=== PATIENT | female | born 1985 | race Caucasian/White ===

== ENCOUNTER 2017-12-16 14:19 | Emergency (ER) | payer OTHER ==
[2017-12-16 15:00] VITALS: BP 118/82
--- NOTE | 2017-12-16 15:30 | UC ---
Upper Extremity HPI - HPI Summary HPI Summary: Pt c/o left forearm pain s/p tripping and landing with FOOSH. denies left wrist pain or left shoulder pain. - History of Current Complaint Hx Obtained From: Patient Hx Last Menstrual Period: 11/27/17 ?: No Onset/Duration: Sudden Onset, Lasting Hours Severity Initially: Mild Severity Currently: Moderate Pain Intensity: 6 Location Of Pain: Is Discrete @ - left medial aspect of forearm Character: Dull, Aching Aggravating Factor(s): Movement Alleviating Factor(s): Rest Associated Signs And Symptoms: Positive: Swelling Related History: Dominant Hand Right - Risk Factors Non-Orthopedic Risk Factor: Negative DVT Risk Factors: Negative Septic Arthritis Risk Factor: Negative Compartment Syndrome Risk Factors: Pain <Suha Khan NP - Last Filed: 12/16/17 16:04> <Adrienne Soto - Last Filed: 12/16/17 16:08> - History of Current Complaint Chief Complaint: UCUpperExtremity Stated Complaint: LEFT ARM INJURY Time Seen by Provider: 12/16/17 14:52 - Allergies/Home Medications Allergies/Adverse Reactions: Allergies Allergy/AdvReac Type Severity Reaction Status Date / Time codeine Allergy Swelling Verified 12/16/17 15:00 Of Face,Lips,& Throat Home Medications: Home Medications Albuterol HFA INHALER* [Ventolin HFA Inhaler*] 2 puff INH Q6H PRN 12/16/17 [ History Confirmed 12/16/17] Ibuprofen TAB* [Motrin TAB* 800 MG] 800 mg PO Q6H PRN 12/16/17 [History Confirmed 12/16/17] PMH/Surg Hx/FS Hx/Imm Hx Previously Healthy: Yes Other History Of: Negative For: HIV, Hepatitis B, Hepatitis C - Surgical History Surgical History: Yes Surgery Procedure, Year, and Place: Right Ear Drum Repair- SEVERAL GRAFTS - NO IMPLANT, LAST ONE 2010, [place]. Tubal Ligation, 2013, [facility]. 2 C SECTIONS - Family History Known Family History: Positive: Cardiac Disease - Social History Occupation: Employed Full-time Lives: With Family Alcohol Use: None Substance Use Type: None Smoking Status (MU): Heavy Every Day Tobacco Smoker Have You Smoked in the Last Year: Yes - Immunization History Most Recent Influenza Vaccination: none <Suha Khan NP Last Filed: 12/16/17 16:04> Review of Systems Constitutional: Negative Skin: Negative Eyes: Negative ENT: Negative Respiratory: Negative Cardiovascular: Negative Gastrointestinal: Negative Genitourinary: Negative Motor: Decreased ROM - secondary to pain, left forearm Neurovascular: Negative Musculoskeletal: Arthralgia, Myalgia Neurological: Negative Psychological: Negative Is Patient Immunocompromised?: No All Other Systems Reviewed And Are Negative: Yes <Suha Khan NP - Last Filed: 12/16/17 16:04> Physical Exam Triage Information Reviewed: Yes Appearance: Pain Distress Vital Signs: Initial Vital Signs Temp 99.2 F 12/16/17 14:54 Pulse 76 12/16/17 14:54 Resp 16 12/16/17 14:54 BP 118/82 12/16/17 14:54 Pulse Ox 100 12/16/17 14:54 Vital Signs Reviewed: Yes Eye Exam: Normal ENT: Positive: Hearing grossly normal Neck exam: Normal Respiratory: Positive: No respiratory distress Musculoskeletal Exam: Other Musculoskeletal: Positive: ROM Limited @ - left forearm Neurological Exam: Normal Psychological Exam: Normal Skin Exam: Normal <Suha Khan NP Last Filed: 12/16/17 16:04> Vital Signs: Initial Vital Signs Temp 99.2 F 12/16/17 14:54 Pulse 76 12/16/17 14:54 Resp 16 12/16/17 14:54 BP 118/82 12/16/17 14:54 Pulse Ox 100 12/16/17 14:54 <Adrienne Soto - Last Filed: 12/16/17 16:08> Diagnostics - Radiology No standard instances Radiology Interpretation Completed By: Radiologist - MPRESSION: No fracture of left forearm is noted. <Suha Khan NP Last Filed: 12/16/17 16:04> Upper Extremity Course/Dx - Differential Dx/Diagnosis Differential Diagnosis/HQI/PQRI: Contusion, Fracture (Closed) Provider Diagnoses: left forearm contusion <Suha Khan NP Last Filed: 12/16/17 16:04> Discharge - Sign-Out/Discharge Documenting (check all that apply): Discharge/Admit/Transfer - Billing Disposition and Condition Condition: STABLE Disposition: HOME <Erin SEE,Suha Coreas - Last Filed: 12/16/17 16:04> - Billing Disposition and Condition Condition: STABLE Disposition: HOME <Adrienne Soto - Last Filed: 12/16/17 16:08> - Discharge Plan Condition: Stable Disposition: HOME Patient Education Materials: Contusion in Adults (ED), R.I.C.E. Treatment (ED) Referrals: Mei Lagunas MD [Primary Care Provider] - If Needed Attestation Statement User Type: Provider - I was available for consult. This patient was seen by the [facility]. The patient was not presented to, seen by, or examined by me. -Hanselj <Adrienne Soto - Last Filed: 12/16/17 16:08>
--- NOTE | 2017-12-16 15:38 | RAD ---
Indication: Fall on the left arm. 2 views of left forearm demonstrates no definite fracture. No other bone or joint abnormality is identified. IMPRESSION: No fracture of left forearm is noted.
[2017-12-16] MEDS ORDERED: Ibuprofen TAB* 400 MG PO ONE (15:39)
== END 2017-12-16 15:52 | disposition home or self-care (01) ==
LOC: UCCORT 14:19
DX: S50.12XA Contusion of left forearm, initial encounter (principal); W01.0XXA Fall on same level from slipping, tripping and stumbling without subsequent striking against object, initial encounter; Y93.9 Activity, unspecified; Y92.9 Unspecified place or not applicable; Z88.5 Allergy status to narcotic agent; F17.210 Nicotine dependence, cigarettes, uncomplicated
CPT/HCPCS: 99213; A9270-GY; G0463

== ENCOUNTER 2019-07-13 11:51 | Emergency (ER) | payer OTHER ==
[2019-07-13 12:27] VITALS: BP 116/74
[2019-07-13] MEDS ORDERED: HYDROcodone/ACETAMIN 5-325 MG* 1 TAB PO ONE (12:31)
[2019-07-13] MEDS ORDERED: Ibuprofen TAB* 400 MG PO ONE (12:32)
--- NOTE | 2019-07-13 13:58 | UC ---
Lower Extremity/Ankle HPI - HPI Summary HPI Summary: 34 year old female with no PMH other than prior injury to left ankle present with right ankle/ foot pain after fall during skiing accident yesterday. Unsure of mechanism of injury. Unable to walk afterwards and today. NO prior injuries/ surgeries. no edema/ bruising. Patient has narcotics at home for pain - History of Current Complaint Chief Complaint: UCLowerExtremity Stated Complaint: RT FOOT INJURY Time Seen by Provider: 07/13/19 12:28 Hx Obtained From: Patient Hx Last Menstrual Period: 07/11/19 ?: No Onset/Duration: Sudden Onset, Lasting Days Severity Initially: Moderate Severity Currently: Moderate Pain Intensity: 7 Pain Scale Used: 0-10 Numeric Aggravating Factor(s): Standing, Ambulation Alleviating Factor(s): Rest, Elevation Able to Bear Weight: No - Allergies/Home Medications Allergies/Adverse Reactions: Allergies Allergy/AdvReac Type Severity Reaction Status Date / Time codeine Allergy Swelling Verified 07/13/19 12:22 Of Face,Lips,& Throat Home Medications: Home Medications Acetaminophen [Acetaminophen Extra Strength] 1,000 mg PO ONCE PRN 07/13/19 [ History Confirmed 07/13/19] PMH/Surg Hx/FS Hx/Imm Hx Previously Healthy: Yes Other History Of: Negative For: HIV, Hepatitis B, Hepatitis C - Surgical History Surgical History: Yes Surgery Procedure, Year, and Place: Right Ear Drum Repair- SEVERAL GRAFTS - NO IMPLANT, LAST ONE 2010, [place]. Tubal Ligation, 2012, [facility]. 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 Alcohol Use: Occasionally Substance Use Type: None Smoking Status (MU): Light Every Day Tobacco Smoker Type: Cigarettes Amount Used/How Often: 5 cigarettes daily Have You Smoked in the Last Year: Yes - Immunization History Most Recent Influenza Vaccination: none Review of Systems All Other Systems Reviewed And Are Negative: Yes Constitutional: Positive: Negative Musculoskeletal: Positive: Arthralgia, Decreased ROM, Myalgia Neurological: Positive: Negative Psychological: Positive: Negative Is Patient Immunocompromised?: No Physical Exam - Summary Physical Exam Summary: neg squeeze test Triage Information Reviewed: Yes Appearance: Well-Appearing, No Pain Distress, Well-Nourished Vital Signs: Initial Vital Signs Temp 98.4 F 07/13/19 12:23 Pulse 57 07/13/19 12:23 Resp 14 07/13/19 12:23 BP 116/74 07/13/19 12:23 Pulse Ox 100 07/13/19 12:23 Vital Signs Reviewed: Yes Eyes: Positive: Conjunctiva Clear Musculoskeletal: Positive: Other: - TTP over mortise joint, ATFL, PTFL. nearly full ROM of right ankle with some pain at terminal flexin/ extension. + abd/ add well. no TTP over metatars, phal, fib/ tib. no knee pain on palpation. neg ant drawer R ankle. Neurological: Positive: Alert, Muscle Tone Normal, Other: - SITLT R toes all Psychological Exam: Normal Skin Exam: Normal Skin: Positive: Other - no edema, no erythema, no ecchymosis throughout right foot, ankle Lower Extremity Course/Dx - Course Course Of Treatment: high ankle sprain - Motrin 600mg every 8 hours as needed for pain, swelling - Elevate, ice as much as possible - CAM boot at all times while mobile. May take off for sleeping, showering if non-weight bearing - Weight bearing as tolerated, toe touch initially, using crutches. - FOllow up with DR. Pace within 5-7 days for re-evaluation Agency Legal Counsel: Hossein Davis Daniel, ([id number]) Cash Grain Farmer: ANTONIA ( ANTONIA) Report Date: 07/13/2019 13:20:00 Report Status: Final ====== Start of Report Content Patient Name: LAZARUS TORO Medical Record# : [id number] Ordering Physician: [place] CAM Acct.#: [id number] : Age: 34 Sex: F Location: [facility] Exam Date: 07/13/19 1230 ADM Status: REG ER Order Information: ANKLE RIGHT 3+VWS Accession Number: [id number] CPT: 76457 HISTORY: skiing injury TTP over b/l mal, mortise . COMPARISONS: None relevant available at the time of dictation. VIEWS: 6, Frontal , lateral, and oblique views of the right ankle and right foot FINDINGS: BONE DENSITY: Normal. BONES: There is no displaced fracture. JOINTS: There is no arthropathy. ALIGNMENT: There is no dislocation. SOFT TISSUES: Unremarkable. OTHER FINDINGS: None. IMPRESSION: NO ACUTE OSSEOUS INJURY. IF SYMPTOMS PERSIST, RECOMMEND REPEAT IMAGING. <Electronically signed by Hossein Davis MD in OV> 07/13/191315 Dictated By: Hossein Davis MD Dictated Date/Time: 07/13/191315 Transcribed Date/Time: 07/13/191315 Copy to: CC:Messi VELASQUEZ; Kip Erickson MD; [place] Dash [place] Imaging - [facility] Imaging - [place] Imaging - [facility] [address] [address] ph ) ph [phone]) ph ([phone]) End of Report Content Agency Legal Counsel: Hossein Davis Daniel, ([id number]) Cash Grain Farmer: ANTONIA, ( NUANCE) Report Date: 07/13/2019 13:20:00 Report Status: Final ====== Start of Report Content Patient Name: LAZARUS TORO Medical Record# : [id number] Ordering Physician: [place] CAM Acct.#: [id number] : Age: 34 Sex: F Location: [facility] Exam Date: 07/13/191229 ADM Status: REG ER Order Information: ANKLE RIGHT 3+VWS Accession Number: [id number] CPT: 28585 HISTORY: skiing injury TTP over b/l mal, mortise . COMPARISONS: None relevant available at the time of dictation. VIEWS: 6, Frontal , lateral, and oblique views of the right ankle and right foot FINDINGS: BONE DENSITY: Normal. BONES: There is no displaced fracture. JOINTS: There is no arthropathy. ALIGNMENT: There is no dislocation. SOFT TISSUES: Unremarkable. OTHER FINDINGS: None. IMPRESSION: NO ACUTE OSSEOUS INJURY. IF SYMPTOMS PERSIST, RECOMMEND REPEAT IMAGING. <Electronically signed by Hossein Davis MD in OV> 07/13/191315 Dictated By: Hossein Davis MD Dictated Date/Time: 07/13/191315 Transcribed Date/Time: 07/13/191315 Copy to: CC:Messi VELASQUEZ; Kip Erickson MD; [place] [facility] Imaging - [facility] Imaging - [facility] [address] [address] ph [phone]) ph [phone]) ph ([phone]) End of Report Content - Differential Dx/Diagnosis Provider Diagnosis: High ankle sprain Discharge ED - Sign-Out/Discharge Documenting (check all that apply): Patient Departure All imaging exams completed and their final reports reviewed: Yes - Discharge Plan Condition: Good Disposition: HOME Patient Education Materials: Ankle Sprain (DC) Referrals: Messi Mckoy PA [Primary Care Provider] - Hemal Pace MD [Medical Doctor] - Additional Instructions: - Motrin 600mg every 8 hours as needed for pain, swelling - Elevate, ice as much as possible - CAM boot at all times while mobile. May take off for sleeping, showering if non-weight bearing - Weight bearing as tolerated, toe touch initially, using crutches. - FOllow up with DR. Pace within 5-7 days for re-evaluation Agency Legal Counsel: Hossein Davis Daniel, ([id number]) Cash Grain Farmer: ANTONIA ( ANTONIA) Report Date: 07/13/2019 13:20:00 Report Status: Final ====== Start of Report Content Patient Name: LAZARUS TORO Medical Record# : [id number] Ordering Physician: [place] [facility] Acct.#: [id number] : Age: 34 Sex: F Location: [facility] Exam Date: 07/13/19 1230 ADM Status: REG ER Order Information: ANKLE RIGHT 3+VWS Accession Number: [id number] CPT: 87348 HISTORY: skiing injury TTP over b/l mal, mortise . COMPARISONS: None relevant available at the time of dictation. VIEWS: 6, Frontal , lateral, and oblique views of the right ankle and right foot FINDINGS: BONE DENSITY: Normal. BONES: There is no displaced fracture. JOINTS: There is no arthropathy. ALIGNMENT: There is no dislocation. SOFT TISSUES: Unremarkable. OTHER FINDINGS: None. IMPRESSION: NO ACUTE OSSEOUS INJURY. IF SYMPTOMS PERSIST, RECOMMEND REPEAT IMAGING. <Electronically signed by Hossein Davis MD in OV> 07/13/191315 Dictated By: Hossein Davis MD Dictated Date/Time: 07/13/191315 Transcribed Date/Time: 07/13/191315 Copy to: CC:Messi VELASQUEZ; Kip Erickson MD; [place] Dash [place] Imaging - [facility] [address] [place] [address] ph [phone]) ph ([phone]) ph ([phone]) End of Report Content Agency Legal Counsel: Hossein Davis Daniel, ([id number]) Cash Grain Farmer: ANTONIA, ( NUANCE) Report Date: 07/13/2019 13:20:00 Report Status: Final ====== Start of Report Content Patient Name: LAZARUS TORO Medical Record# : [id number] Ordering Physician: [place] [facility] Acct.#: [id number] : Age: 34 Sex: F Location: [facility] Exam Date: 07/13/19 1230 ADM Status: REG ER Order Information: ANKLE RIGHT 3+VWS Accession Number: [id number] CPT: 33327 HISTORY: skiing injury TTP over b/l mal, mortise . COMPARISONS: None relevant available at the time of dictation. VIEWS: 6, Frontal , lateral, and oblique views of the right ankle and right foot FINDINGS: BONE DENSITY: Normal. BONES: There is no displaced fracture. JOINTS: There is no arthropathy. ALIGNMENT: There is no dislocation. SOFT TISSUES: Unremarkable. OTHER FINDINGS: None. IMPRESSION: NO ACUTE OSSEOUS INJURY. IF SYMPTOMS PERSIST, RECOMMEND REPEAT IMAGING. <Electronically signed by Hossein Davis MD in OV> 07/13/19 131 Dictated By: Hossein Davis MD Dictated Date/Time: 07/13/191315 Transcribed Date/Time: 07/13/191315 Copy to: CC:Messi VELASQUEZ; Kip Erickson MD; [place] [facility] Imaging - [facility] Imaging [facility] [address] [address] ph [phone]) ph ([phone]) ph ([phone]) End of Report Content - Billing Disposition and Condition Condition: GOOD Disposition: Home - Attestation Statements Provider Attestation: This patient was not seen by me. I was available for consult. Chart reviewed. BERT
== END 2019-07-13 13:55 | disposition home or self-care (01) ==
LOC: UCCORT 11:51
DX: S93.401A Sprain of unspecified ligament of right ankle, initial encounter (principal); F17.210 Nicotine dependence, cigarettes, uncomplicated; Z88.5 Allergy status to narcotic agent; W00.9XXA Unspecified fall due to ice and snow, initial encounter; Y93.23 Activity, snow (alpine) (downhill) skiing, snowboarding, sledding, tobogganing and snow tubing; Y92.9 Unspecified place or not applicable
CPT/HCPCS: 99213; A9270-GY; G0463